=== PATIENT | male | born 1985 | race Two or more races ===

== ENCOUNTER 2024-03-20 09:22 | Outpatient (AMB) | payer BC, SELFPAY ==
[2024-03-20 09:28] VITALS: BP 124/82; PULSE 70; O2SAT 97; BMI 45.1
--- NOTE | 2024-03-20 09:28 | A.OFFVIS_ITS ---
Vital Signs 03/20/24 09:28 Height 5 ft 8 in Weight 296 lb 8.348 oz BMI 45.1 BP 124/82 Blood Pressure Location Rt brachial Position Sitting Pulse 70 Pulse Source Doppler Pulse Oximetry (%) 97 Oxygen Delivery Method Room Air Intake Visit Reasons: katey Allergies No Known Allergies Allergy (Verified 03/20/24 09:31) HPI HPI katey: Details: 38-year-old gentleman, nonsmoker, with underlying obesity and history of sleep apnea for approximately 10 years referred for management of his underlying obstr uctive sleep apnea. Patient states that his last sleep study has been over 10 years prior and his significant changes in his weight. He has been using his CPAP machine, however recently it stopped working. Patient is interested in continuation of his CPAP therapy. [facility] Social History (Updated 03/20/24 @ 09:31 by Annabelle Yates ON LICENSE OF [facility]) Patient Tobacco Use Status: Never used Tobacco Review of Systems Const Denies daytime sleepiness, Denies excessive sweating, Denies fatigue, Denies fever(s), Denies lethargy, Denies malaise, Denies night sweats, Denies snoring and Denies weight loss Eyes Denies blurry vision and Denies itchy eyes ENT Denies nasal congestion, Denies post nasal drip, Denies sinus pain, Denies sinus pressure and Denies other ( Thrush) Card Denies chest pain, Denies pedal edema, Denies dyspnea, Denies orthopnea and Denies paroxysmal nocturnal dyspnea Resp Denies cough, Denies hemoptysis, Denies excessive phlegm production, Denies dyspnea, Denies snoring and Denies wheezing GI Denies abdominal pain and Denies heartburn Musc Denies myalgias, Denies arthralgias and Denies joint swelling Skin/Breast Denies rash Neuro Denies memory loss and Denies seizure-like activity Psych Denies abnormal sleep pattern, Denies anxiety and Denies memory loss Endo Denies excessive sweating, Denies fatigue and Denies heat intolerance Calos/Lymph Denies easy bruising Aller/Immun Denies itchy eyes, Denies seasonal rhinorrhea and Denies wheezing Physical Exam Vital Signs: Last Vital Signs Pulse 70 03/20/24 09:28 BP 124/82 03/20/24 09:28 Pulse Ox 97 03/20/24 09:28 Oxygen Delivery Method Room Air 06/18/24 09:28 BMI result Body Mass Index 45.1 Const General: no acute distress and alert Nutritional Appearance: obese Orientation/consciousness: Other orientation findings ( oriented) HEENT Head: Yes atraumatic Eyes General: appearance normal, both eyes and all related structures Sclerae: sclerae normal EOM: EOMs intact bilaterally Neck Neck: Yes supple Lymphatic: no lymphadenopathy noted Resp Effort & Inspection: normal respiratory effort and no use of accessory muscles Auscultation: clear to auscultation bilaterally Cardio Rate: regular rate Rhythm: regular rhythm Heart sounds: no gallops, no murmurs and no rubs Skin General skin exam: other ( warm) Extrem General: No clubbing, No cyanosis and No edema Assessment & Plan Assessment & Plan (1) KATEY (obstructive sleep apnea): Code(s): G47.33 - Obstructive sleep apnea (adult) (pediatric) Category: Medical Plan: Underlying KATEY, previously on CPAP, recently machine is broken and has significant weight changes since prior studies. [place] Sleepiness Scale score of 15. Will obtain home sleep study. Coding Level of Care Code New Pt Level 3 (43545) Diagnoses KATEY (obstructive sleep apnea) G47.33
== END 2024-03-20 09:44 | disposition home or self-care (01) ==
PROVIDERS: PCP Nurse Practitioner; Referring Provider Nurse Practitioner; Visit Provider Internal Medicine Pulmonary Disease
DX: G47.33 Obstructive sleep apnea (adult) (pediatric) (principal)
CPT/HCPCS: 99203

== ENCOUNTER → 2024-03-20 09:22 | Outpatient (BNVA) | payer BC, SELFPAY | PROVIDERS: Visit Provider Internal Medicine Pulmonary Disease ==

== ENCOUNTER → 2024-04-23 12:35 | Outpatient (REF) | payer BC, SELFPAY | LOC: HO.SL 12:35 | PROVIDERS: Visit Provider Internal Medicine Pulmonary Disease | DX: G47.33 Obstructive sleep apnea (adult) (pediatric) (principal) | CPT/HCPCS: 95806 ==

== ENCOUNTER → 2024-04-23 12:58 | Outpatient (BNV) | payer BC, SELFPAY | PROVIDERS: Visit Provider Internal Medicine | DX: G47.33 Obstructive sleep apnea (adult) (pediatric) (principal) | CPT/HCPCS: 95806 ==